=== PATIENT | female | born 1955 ===

== ENCOUNTER 2017-02-06 13:52 | Emergency (ER) | payer SELFPAY ==
[2017-02-06 13:58] VITALS: TEMP 97.8; O2SAT 98
--- NOTE | 2017-02-06 15:17 | C.PDOC ---
History Of Present Illness 61 y/o female presents to ED s/p fall 10 days ago from standing. Patient reports she fell with arms out (hands supinated). Currently c/o bilateral hand/ forearm pain. Denies head injury, LOC, new weakness, new numbness, or other associated symptoms. Time Seen by Provider: 02/06/17 14:20 Chief Complaint (Nursing): Finger,Hand,&Wrist History Per: Patient History/Exam Limitations: no limitations Onset/Duration Of Symptoms: Days Current Symptoms Are (Timing): Still Present Quality: "Pain" Recent travel outside of the [place]: No Past Medical History Reviewed: Historical Data, Nursing Documentation, Vital Signs Vital Signs: Last Vital Signs Temp 97.8 F 02/06/17 13:57 Pulse 72 02/06/17 15:42 Resp 18 02/06/17 15:42 BP 124/75 02/06/17 15:42 Pulse Ox 98 02/06/17 15:42 - Medical History PMH: No Chronic Diseases Surgical History: Tonsillectomy Family History: States: Unknown Family Hx - Social History Hx Alcohol Use: No Hx Substance Use: No - Immunization History Hx Tetanus Toxoid Vaccination: No Hx Influenza Vaccination: No Hx Pneumococcal Vaccination: No Review Of Systems Except As Marked, All Systems Reviewed And Found Negative. Musculoskeletal: Positive for: Arm Pain (bilateral forearm), Hand Pain ( bilateral) Skin: Negative for: Rash Neurological: Negative for: Weakness, Numbness Physical Exam - Physical Exam Appears: Non-toxic, No Acute Distress Skin: Warm, Dry Head: Atraumatic, Normacephalic Neck: Normal ROM, No Midline Cervical Tenderness, No Paracervical Tenderness, Supple Chest: Symmetrical Cardiovascular: Rhythm Regular Respiratory: Normal Breath Sounds, No Rales, No Rhonchi, No Wheezing Gastrointestinal/Abdominal: Soft, No Tenderness Back: Normal Inspection, No Vertebral Tenderness, No Paraspinal Tenderness Extremity: Normal ROM, No Tenderness, Capillary Refill (< 2 sec.), No Deformity , Other (few ecchymoses to bilateral hands, no point tenderness) Extremity: Bilateral: Normal Color And Temperature Pulses: Left Radial: Normal, Right Radial: Normal Neurological/Psych: Oriented x3, Normal Motor, Normal Sensation ED Course And Treatment O2 Sat by Pulse Oximetry: 98 (RA) Pulse Ox Interpretation: Normal - Other Rad BL Hand XR X-Ray: Interpreted by Me (neg) Medical Decision Making Medical Decision Making: b/l hand contusions 10 days ago, no fx's mild bruising ? related to ASA therapy. continue conservative tx. Disposition Doctor Will See Patient In The: Office Counseled Patient/Family Regarding: Studies Performed, Diagnosis - Disposition Referrals: [facility] [Outside] [facility] [Outside] Disposition: HOME/ ROUTINE Disposition Time: 15:17 Condition: GOOD Additional Instructions: continue ice and NSAIDS therapy follow-up in our Clinic or with your PMD as needed. x-rays of both hands are NORMAL today Instructions: Contusion in Adults (ED) Forms: [employer] Connect ([place]ian) - Clinical Impression Clinical Impression: Contusion - Scribe Statement The provider has reviewed the documentation as recorded by the Scribe SM All medical record entries made by the Scribe were at my direction and personally dictated by me. I have reviewed the chart and agree that the record accurately reflects my personal performance of the history, physical exam, medical decision making, and the department course for this patient. I have also personally directed, reviewed, and agree with the discharge instructions and disposition.
[2017-02-06 15:43] VITALS: BP 124/75; PULSE 72; RESP 18
--- NOTE | 2017-02-07 07:35 | RAD ---
PROCEDURE: BILATERAL HANDS RADIOGRAPHS HISTORY: fall 10 days ago COMPARISON: None TECHNIQUE: Two views to 10 minutes submitted for evaluation. FINDINGS: There is no acute fracture or destructive bony lesion appreciated throughout the bilateral hands. No dislocation or subluxation. However, there is advanced degenerative joint disease seen throughout the interphalangeal joints diffusely manifest by marked joint space narrowing and articular cortical sclerosis. "Gull wing" deformities of the distal interphalangeal joints of the left index and small finger is identified as well as at the small digit of the right hand as well. Mild diffuse osteopenia suggests osteoporosis. Incidental note is made of degenerative changes at the carpal/metacarpal articulations bilaterally diffusely. Local soft tissues appear unremarkable. 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 Borderline diffuse osteopenia may suggest osteoporosis. No acute fracture or dislocation identified bilaterally.
== END 2017-02-06 15:42 | disposition home or self-care (01) ==
LOC: C.ER 13:52
DX: S60.222A Contusion of left hand, initial encounter (principal); S60.221A Contusion of right hand, initial encounter; W18.30XA Fall on same level, unspecified, initial encounter